=== PATIENT | male | born 1965 | race Caucasian/White ===

== ENCOUNTER → 2020-10-31 | Outpatient (CLI) | payer OTHER | LOC: CAT 10:39 | PROVIDERS: ATTEND Family Medicine | DX: Z13.6 Encounter for screening for cardiovascular disorders (principal) ==

== ENCOUNTER → 2021-02-04 | Outpatient (CLI) | payer OTHER | LOC: RAD 14:13 | PROVIDERS: ATTEND Nurse Practitioner | DX: M54.59 Other low back pain (principal) ==